=== PATIENT | male | born 1955 | race Caucasian/White ===

== ENCOUNTER 2018-08-22 15:02 | Emergency (ER) | payer MEDICAID ==
[~2018-08-22] VITALS: Ht 180.3 cm; Wt 104.0 kg
[~2018-08-22 15:02] MED LIST: ASPI-845 PO; ATEN25TA7 PO; HYDR-4353 PO; PANT20TA2 PO
[2018-08-22 15:43] LABS: BASOPHILS % (AUTO) 0.8 % (0-1); EOSINOPHILS # (AUTO) 0.2 X10'3 (0-0.9); EOSINOPHILS % (AUTO) 2.9 % (0-6); HEMATOCRIT 45.3 % (42.0-52.0); HEMOGLOBIN 15.5 g/dl (14.0-17.9); LYMPHOCYTES # (AUTO) 1.7 X10'3 (1.1-4.8); LYMPHOCYTES % (AUTO) 26.9 % (21-51); MEAN CORPUSCULAR HEMOGLOBIN 30.3 PG (27.0-31.0); MEAN CORPUSCULAR HGB CONC 34.3 % (33.0-36.5); MEAN CORPUSCULAR VOLUME 88.3 FL (78-98); MONOCYTES # (AUTO) 0.6 X10'3 (0-0.9); MONOCYTES % (AUTO) 10.1 % (2-12); NEUTROPHILS # (AUTO) 3.6 X10'3 (1.8-7.7); NEUTROPHILS % (AUTO) 59.3 % (42-75); PLATELET COUNT 214 X10'3 (140-440); RED BLOOD COUNT 5.13 X10'6 (4.70-6.10); RED CELL DISTRIBUTION WIDTH 12.5 % (11.5-14.5); WHITE BLOOD COUNT 6.1 X10'3 (4.5-11.0)
[2018-08-22] MEDS ORDERED: ondansetron/PF 4mg/2ml inj IV ONE (15:50)
[2018-08-22] MEDS ORDERED: morphine 4 MG/ML inj SYRINge IV ONE (15:50)
[2018-08-22 15:56] LABS: ALANINE AMINOTRANSFERASE 54 U/L (12-78); ALBUMIN 3.1 G/DL (3.4-5.0); ALBUMIN/GLOBULIN RATIO 0.9 (1.1-1.5); ALKALINE PHOSPHATASE 116 IU/L (46-116); ANION GAP 10 (8-16); BILIRUBIN,TOTAL 1.1 MG/DL (0.1-1.0); BLOOD UREA NITROGEN 19 MG/DL (7-18); BUN/CREATININE RATIO 15.2 (5.4-32.0); CALCIUM 9.7 MG/DL (8.5-10.1); CHLORIDE 105 MMOL/L (99-107); CREATININE 1.25 MG/DL (0.60-1.10); GLUCOSE 142 MG/DL (70-104); SODIUM 139 MMOL/L (135-145); TOTAL CARBON DIOXIDE 24.1 MMOL/L (24-32); TOTAL PROTEIN 6.6 G/DL (6.4-8.2); eGFR 58 ML/MIN
[2018-08-22 15:58] LABS: ASPARTATE AMINO TRANSFERASE 51 U/L (10-37); POTASSIUM 4.6 MMOL/L (3.5-5.1)
[2018-08-22 16:05] VITALS: BP 153/99
[2018-08-22 17:25] LABS: CLARITY,URINE CLOUDY (Clear); GLUCOSE, URINE NEGATIVE (Neg); KETONES,URINE TRACE mg/dl (Neg); LEUKOCYTE ESTERASE ,URINE NEGATIVE (Neg); NITRITES, URINE NEGATIVE (Neg); OCCULT BLOOD,URINE LARGE (Neg); PH,URINE 6.5 (4.8-8.0); PROTEIN,URINE 30 mg/dl (Neg); UA COLLECTION TYPE CLN CATCH MIDSTREAM
[2018-08-22 17:26] LABS: COLOR,URINE AMBER (Yellow)
[2018-08-22 17:32] LABS: MUCUS STRANDS MANY /LPF (Neg); SQUAMOUS EPITHELIAL CELL,UR FEW /LPF (FEW)
[2018-08-22 17:33] LABS: CAL OXALATE CRYSTALS FEW /HPF (NEGATIVE); HYALINE CASTS 0-3 /LPF (NEGATIVE)
[2018-08-22 17:35] LABS: BACTERIA,URINE NONE SEEN /HPF (Neg); RBC,URINE 20-50 /HPF (0-2)
[2018-08-22] MEDS ORDERED: CIPR-230 PO (18:05)
[2018-08-22] MEDS ORDERED: ketorolac tromethamine 15mg/ml inj. IV ONE (18:05)
[2018-08-22] MEDS ORDERED: ciprofloxacin 250mg tablet PO ONE (18:05)
== END 2018-08-22 18:21 | disposition home or self-care (01) ==
LOC: ER 15:02
DX: N39.0 Urinary tract infection, site not specified (principal); N48.89 Other specified disorders of penis; G89.29 Other chronic pain; J44.9 Chronic obstructive pulmonary disease, unspecified; I10 Essential (primary) hypertension; Z87.442 Personal history of urinary calculi; Z88.8 Allergy status to other drugs, medicaments and biological substances; Z79.82 Long term (current) use of aspirin; Z79.899 Other long term (current) drug therapy
CPT/HCPCS: 36415; 74018; 80053; 81001; 85025; 87088; 96374; 96375; 99285; J2270; J2405

== ENCOUNTER 2019-04-23 16:37 | Emergency (ER) | payer MEDICARE, MEDICAID ==
[~2019-04-23] VITALS: Ht 180.3 cm; Wt 113.6 kg
[2019-04-23 16:38] VITALS: BP 113/66
== END 2019-04-23 16:51 ==
LOC: ER 16:37
DX: Z04.1 Encounter for examination and observation following transport accident (principal); E66.9 Obesity, unspecified; I10 Essential (primary) hypertension; J44.9 Chronic obstructive pulmonary disease, unspecified; G89.29 Other chronic pain; Z98.890 Other specified postprocedural states; Z88.8 Allergy status to other drugs, medicaments and biological substances; Z79.82 Long term (current) use of aspirin; Z79.899 Other long term (current) drug therapy; V49.88XA Car occupant (driver) (passenger) injured in other specified transport accidents, initial encounter; Y93.89 Activity, other specified; Y92.413 State road as the place of occurrence of the external cause; Y99.9 Unspecified external cause status
CPT/HCPCS: 99283

== ENCOUNTER 2024-12-11 11:32 | Inpatient (IN) | payer MEDICARE, MEDICAID, OTHER ==
[~2024-12-11] VITALS: Ht 193 cm; Wt 120.0 kg
[2024-12-11 12:33] LABS: BASOPHILS # (AUTO) 0.1 X10'3 (0-0.2); BASOPHILS % (AUTO) 0.3 % (0-1); EOSINOPHILS % (AUTO) 0.1 % (0-6); HEMATOCRIT 54.6 % (42.0-52.0); HEMOGLOBIN 17.9 g/dl (14.0-17.9); LYMPHOCYTES # (AUTO) 2.4 X10'3 (1.1-4.8); LYMPHOCYTES % (AUTO) 11.6 % (21-51); MEAN CORPUSCULAR HEMOGLOBIN 27.6 PG (27.0-31.0); MEAN CORPUSCULAR HGB CONC 32.7 g/dL (33.0-36.5); MEAN CORPUSCULAR VOLUME 84.5 FL (78-98); MEAN PLATELET VOLUME 8.6 FL (7.4-10.4); MONOCYTES # (AUTO) 2.1 X10'3 (0-0.9); MONOCYTES % (AUTO) 10.4 % (2-12); NEUTROPHILS % (AUTO) 77.6 % (42-75); PLATELET COUNT 387 X10'3 (140-440); RED BLOOD COUNT 6.47 X10'6 (4.70-6.10); RED CELL DISTRIBUTION WIDTH 15.6 % (11.5-14.5); WHITE BLOOD COUNT 20.6 X10'3 (4.5-11.0)
[2024-12-11 12:41] LABS: BILIRUBIN,URINE SMALL (Neg); CLARITY,URINE CLEAR (Clear); GLUCOSE, URINE NEGATIVE (Neg); KETONES,URINE NEGATIVE (Neg); LEUKOCYTE ESTERASE ,URINE NEGATIVE (Neg); NITRITES, URINE NEGATIVE (Neg); OCCULT BLOOD,URINE TRACE-INTACT (Neg); PH,URINE 5.5 (4.8-8.0); PROTEIN,URINE TRACE mg/dl (Neg)
[2024-12-11 12:42] LABS: UA COLLECTION TYPE FOLEY CATH
[2024-12-11 12:43] LABS: COLOR,URINE AMBER (Yellow)
[2024-12-11 12:43] LABS: ALANINE AMINOTRANSFERASE 96 U/L (12-78); ALBUMIN 3.2 G/DL (3.4-5.0); ALBUMIN/GLOBULIN RATIO 0.6 (1.1-1.5); ALKALINE PHOSPHATASE 176 IU/L (46-116); ANION GAP 8 (8-16); BILIRUBIN,TOTAL 3.5 MG/DL (0.1-1.0); BLOOD UREA NITROGEN 77 MG/DL (7-18); BUN/CREATININE RATIO 56.2 (10.0-20.0); CALCIUM 11.1 MG/DL (8.5-10.1); CHLORIDE 108 MMOL/L (99-107); CREATININE 1.37 MG/DL (0.60-1.10); GLUCOSE 252 MG/DL (70-104); SODIUM 143 MMOL/L (135-145); TOTAL CARBON DIOXIDE 26.9 MMOL/L (24-32); TOTAL PROTEIN 8.2 G/DL (6.4-8.2); eCRCL 58 ML/MIN; eGFR 51 ML/MIN
[2024-12-11 12:47] LABS: RBC,URINE 0-2 /HPF (0-2); WBC,URINE 0-4 /HPF (0-4)
[2024-12-11 12:48] LABS: BACTERIA,URINE NONE SEEN /HPF (Neg); HYALINE CASTS 0-3 /LPF (NEGATIVE); MUCUS STRANDS NONE SEEN /LPF (Neg); SQUAMOUS EPITHELIAL CELL,UR FEW /LPF (FEW)
[2024-12-11 12:50] LABS: PRO BRAIN NATRIURETIC PEPTIDE 159 PG/ML (0-125)
[2024-12-11] MEDS ORDERED: iohexol 350MG/ML 100ml bottle IV ONE (13:09)
[2024-12-11 13:37] LABS: ASPARTATE AMINO TRANSFERASE 180 U/L (10-37); POTASSIUM 5.4 MMOL/L (3.5-5.1)
[2024-12-11 14:13] LABS: CREATINE KINASE 3189 U/L (39-308)
[2024-12-11] MEDS: ringers solution, lacted 1,000 ML IV ONE (15:32)
[2024-12-11] MEDS: normal saline 1000ml 1,000 ML IV ONE ×2 (16:18→17:25)
[2024-12-11] MEDS ORDERED: acetaminophen 325mg tablet PO PRN (16:55)
[2024-12-11] MEDS ORDERED: mag hydrox/Alum hydrox/simeth 30ml oral suspension PO PRN (16:55)
[2024-12-11] MEDS ORDERED: potassium Cl 40MEQ/1/2NS 520ml 520 ML IV PRN (16:55)
[2024-12-11] MEDS ORDERED: magnesium hydroxide 30ml (MOM) UD suspension PO PRN (16:55)
[2024-12-11] MEDS ORDERED: magnesium sulf-water 4G/100mL 100 ML IV PRN (16:55)
[2024-12-11] MEDS ORDERED: magnesium sulf-water 2g/50mL 50 ML IV PRN (16:55)
[2024-12-11] MEDS ORDERED: potassium Cl 20 mEq SR tablet PO PRN ×2 (16:55)
[2024-12-11] MEDS: normal saline 1000ml 1,000 ML IV SCH (16:55)
[2024-12-11] MEDS ORDERED: ondansetron/PF 4mg/2ml inj IV PRN (16:55)
[2024-12-11] MEDS ORDERED: magnesium Cl slow-release 64mg tablet PO PRN (16:55)
[2024-12-11] MEDS: piperacillin/tazo 4.5gm/100ml 100 ML IV ONE (17:01)
[2024-12-11] MEDS: ipratropium/albuterol 3ml nebule NEB SCH (17:34)
[2024-12-11 17:35] VITALS: PULSE 100; RESP 20; O2SAT 96
[2024-12-11] MEDS ORDERED: NO HOME MEDS (17:56)
[2024-12-11 18:00] VITALS: BP 126/70; PULSE 90; RESP 16; TEMP 97.8; O2SAT 94
[2024-12-11 20:00] VITALS: PULSE 88; RESP 15; O2SAT 94
[2024-12-11] MEDS: docusate sod 100mg capsule PO SCH (20:00)
[2024-12-11] MEDS: K and/or MAG REPLACEMENT MC SCH (20:00)
[2024-12-11 22:00] VITALS: BP 123/80; PULSE 88; RESP 20; TEMP 97.6; O2SAT 94
[2024-12-11] MEDS: heparin, porcine 5000 units/ml vial SQ SCH (22:27)
[2024-12-11] MEDS: morphine 4 MG/ML inj SYRINge IV PRN (22:38)
[2024-12-12] VITALS (15 sets, daily range): BP systolic 85–145; BP diastolic 47–93; PULSE 85–101; RESP 17–25; TEMP 97.3–98.2; O2SAT 92–98
[2024-12-12] MEDS: piperacillin/tazo 3.375gm/50ml 50 ML IV SCH (00:21)
[2024-12-12] MEDS: morphine 2 MG/ML inj. syringe IV ONE (01:27)
[2024-12-12 07:29] LABS: BASOPHILS % (AUTO) 0.3 % (0-1); EOSINOPHILS % (AUTO) 0.2 % (0-6); HEMATOCRIT 47.6 % (42.0-52.0); HEMOGLOBIN 15.4 g/dl (14.0-17.9); LYMPHOCYTES # (AUTO) 2.7 X10'3 (1.1-4.8); LYMPHOCYTES % (AUTO) 17.4 % (21-51); MEAN CORPUSCULAR HEMOGLOBIN 27.4 PG (27.0-31.0); MEAN CORPUSCULAR HGB CONC 32.4 g/dL (33.0-36.5); MEAN CORPUSCULAR VOLUME 84.5 FL (78-98); MEAN PLATELET VOLUME 8.4 FL (7.4-10.4); MONOCYTES # (AUTO) 1.8 X10'3 (0-0.9); MONOCYTES % (AUTO) 11.4 % (2-12); NEUTROPHILS # (AUTO) 10.9 X10'3 (1.8-7.7); NEUTROPHILS % (AUTO) 70.7 % (42-75); PLATELET COUNT 320 X10'3 (140-440); RED BLOOD COUNT 5.63 X10'6 (4.70-6.10); RED CELL DISTRIBUTION WIDTH 15.6 % (11.5-14.5); WHITE BLOOD COUNT 15.4 X10'3 (4.5-11.0)
[2024-12-12 07:44] LABS: ALANINE AMINOTRANSFERASE 78 U/L (12-78); ALBUMIN 2.5 G/DL (3.4-5.0); ALBUMIN/GLOBULIN RATIO 0.7 (1.1-1.5); ALKALINE PHOSPHATASE 119 IU/L (46-116); ANION GAP 9 (8-16); ASPARTATE AMINO TRANSFERASE 182 U/L (10-37); BILIRUBIN,TOTAL 3.4 MG/DL (0.1-1.0); BLOOD UREA NITROGEN 78 MG/DL (7-18); CALCIUM 9.8 MG/DL (8.5-10.1); CHLORIDE 113 MMOL/L (99-107); CHOL/HDL RATIO 3.8 (0.00-4.99); CHOLESTEROL 75 MG/DL (0-200); CREATININE 1.66 MG/DL (0.60-1.10); GLUCOSE 145 MG/DL (70-104); HDL CHOLESTEROL 20 MG/DL (35-60); LDL CHOLESTEROL 37 MG/DL (50-100); POTASSIUM 5.1 MMOL/L (3.5-5.1); SODIUM 145 MMOL/L (135-145); TOTAL CARBON DIOXIDE 23.2 MMOL/L (24-32); TOTAL PROTEIN 6.1 G/DL (6.4-8.2); TRIGLYCERIDES 138 MG/DL (20-135); eCRCL 51 ML/MIN; eGFR 41 ML/MIN
[2024-12-12] MEDS: nystatin 15 GM powder TP SCH (08:26)
[2024-12-12] MEDS ORDERED: levetiracetam 250mg tablet PO SCH (08:45)
[2024-12-12] MEDS: normal saline 500ml IV soln 500 ML IV ONE (08:55)
[2024-12-12 09:36] LABS: CREATINE KINASE 2021 U/L (39-308)
[2024-12-12 10:40] LABS: URINE AMPHETAMINE SCREEN POSITIVE (Neg); URINE BARBITUATE SCREEN NEGATIVE (Neg); URINE BENZODIAZEPINES SCREEN NEGATIVE (Neg); URINE CANNABINOID SCREEN NEGATIVE (Neg); URINE COCAINE SCREEN NEGATIVE (Neg); URINE METHADONE SCREEN NEGATIVE (Neg); URINE OPIATE SCREEN POSITIVE (Neg); URINE PHENCYCLIDINE SCREEN NEGATIVE (Neg)
[2024-12-12] MEDS ORDERED: levetiracetam inj 500 MG in normal saline 100ml IV soln 100 ML IV SCH (11:20)
[2024-12-12 12:32] LABS: PHOSPHORUS 4.3 MG/DL (2.3-4.5)
[2024-12-12] MEDS: Levetiracetam-NACL 500mg/100ml 100 ML IV SCH (12:53)
[2024-12-12 12:59] LABS: URIC ACID 13.1 MG/DL (3.5-7.2)
[2024-12-13] VITALS (16 sets, daily range): BP systolic 97–148; BP diastolic 49–76; PULSE 83–98; RESP 18–26; TEMP 97–98.1; O2SAT 91–96
[2024-12-13] MEDS ORDERED: piperacillin/tazo 3.375gm/50ml 50 ML IV SCH (04:15)
[2024-12-13] MEDS: piperacillin/tazo 3.375gm/50ml 50 ML IV SCH (04:23)
[2024-12-13 11:01] LABS: BASOPHILS # (AUTO) 0.1 X10'3 (0-0.2); BASOPHILS % (AUTO) 0.6 % (0-1); EOSINOPHILS % (AUTO) 0.1 % (0-6); HEMATOCRIT 42.6 % (42.0-52.0); HEMOGLOBIN 13.9 g/dl (14.0-17.9); LYMPHOCYTES # (AUTO) 2.3 X10'3 (1.1-4.8); LYMPHOCYTES % (AUTO) 19.7 % (21-51); MEAN CORPUSCULAR HEMOGLOBIN 27.7 PG (27.0-31.0); MEAN CORPUSCULAR HGB CONC 32.7 g/dL (33.0-36.5); MEAN CORPUSCULAR VOLUME 84.8 FL (78-98); MEAN PLATELET VOLUME 8.1 FL (7.4-10.4); MONOCYTES # (AUTO) 1.1 X10'3 (0-0.9); MONOCYTES % (AUTO) 9.7 % (2-12); NEUTROPHILS % (AUTO) 69.9 % (42-75); PLATELET COUNT 288 X10'3 (140-440); RED BLOOD COUNT 5.03 X10'6 (4.70-6.10); WHITE BLOOD COUNT 11.4 X10'3 (4.5-11.0)
[2024-12-13 11:28] LABS: ALANINE AMINOTRANSFERASE 73 U/L (12-78); ALBUMIN 2.3 G/DL (3.4-5.0); ALKALINE PHOSPHATASE 98 IU/L (46-116); ANION GAP 7 (8-16); ASPARTATE AMINO TRANSFERASE 139 U/L (10-37); BILIRUBIN,TOTAL 4.4 MG/DL (0.1-1.0); BLOOD UREA NITROGEN 84 MG/DL (7-18); BUN/CREATININE RATIO 50.3 (10.0-20.0); CALCIUM 9.8 MG/DL (8.5-10.1); CHLORIDE 122 MMOL/L (99-107); CREATINE KINASE 764 U/L (39-308); CREATININE 1.67 MG/DL (0.60-1.10); GLUCOSE 118 MG/DL (70-104); SODIUM 152 MMOL/L (135-145); TOTAL CARBON DIOXIDE 23.3 MMOL/L (24-32); URIC ACID 12.3 MG/DL (3.5-7.2); eCRCL 51 ML/MIN; eGFR 41 ML/MIN
[2024-12-13 12:01] LABS: ALBUMIN/GLOBULIN RATIO 0.7 (1.1-1.5); TOTAL PROTEIN 5.8 G/DL (6.4-8.2)
[2024-12-13] MEDS ORDERED: sodium chloride 0.45% 1,000 ML IV SCH (17:30)
[2024-12-13] MEDS: dextrose 5%-water 1,000 ML IV SCH (21:50)
[2024-12-13] MEDS: LORazepam 2 mg/ml vial IV ONE (22:50)
[2024-12-14] VITALS (15 sets, daily range): BP systolic 114–135; BP diastolic 60–95; PULSE 80–93; RESP 16–21; TEMP 97.3–99; O2SAT 85–93
[2024-12-14] MEDS: morphine 2 MG/ML inj. syringe IV PRN (01:10)
[2024-12-14] MEDS: acetylcysteine 200 MG/ml 4ml vial INH ONE (01:53)
[2024-12-14 08:01] LABS: BASOPHILS # (AUTO) 0.1 X10'3 (0-0.2); BASOPHILS % (AUTO) 0.5 % (0-1); EOSINOPHILS % (AUTO) 0.3 % (0-6); HEMATOCRIT 44.8 % (42.0-52.0); HEMOGLOBIN 14.4 g/dl (14.0-17.9); LYMPHOCYTES # (AUTO) 2.3 X10'3 (1.1-4.8); LYMPHOCYTES % (AUTO) 21.3 % (21-51); MEAN CORPUSCULAR HEMOGLOBIN 27.5 PG (27.0-31.0); MEAN CORPUSCULAR HGB CONC 32.2 g/dL (33.0-36.5); MEAN CORPUSCULAR VOLUME 85.6 FL (78-98); MEAN PLATELET VOLUME 7.7 FL (7.4-10.4); MONOCYTES # (AUTO) 1.1 X10'3 (0-0.9); MONOCYTES % (AUTO) 9.7 % (2-12); NEUTROPHILS # (AUTO) 7.5 X10'3 (1.8-7.7); NEUTROPHILS % (AUTO) 68.2 % (42-75); PLATELET COUNT 304 X10'3 (140-440); RED BLOOD COUNT 5.24 X10'6 (4.70-6.10)
[2024-12-14] MEDS: piperacillin/tazo 3.375gm/50ml 50 ML IV SCH (08:25)
[2024-12-14 08:40] LABS: ALANINE AMINOTRANSFERASE 86 U/L (12-78); ALBUMIN 2.3 G/DL (3.4-5.0); ALBUMIN/GLOBULIN RATIO 0.6 (1.1-1.5); ALKALINE PHOSPHATASE 107 IU/L (46-116); ANION GAP 10 (8-16); ASPARTATE AMINO TRANSFERASE 154 U/L (10-37); BILIRUBIN,TOTAL 4.1 MG/DL (0.1-1.0); BLOOD UREA NITROGEN 67 MG/DL (7-18); BUN/CREATININE RATIO 44.4 (10.0-20.0); CALCIUM 10.3 MG/DL (8.5-10.1); CHLORIDE 123 MMOL/L (99-107); CREATINE KINASE 589 U/L (39-308); CREATININE 1.51 MG/DL (0.60-1.10); GLUCOSE 159 MG/DL (70-104); PHOSPHORUS 2.7 MG/DL (2.3-4.5); POTASSIUM 4.8 MMOL/L (3.5-5.1); PRO BRAIN NATRIURETIC PEPTIDE 204 PG/ML (0-125); SODIUM 154 MMOL/L (135-145); TOTAL CARBON DIOXIDE 21.3 MMOL/L (24-32); TOTAL PROTEIN 6.3 G/DL (6.4-8.2); URIC ACID 11.6 MG/DL (3.5-7.2); eCRCL 56 ML/MIN; eGFR 46 ML/MIN
[2024-12-14] MEDS: furosemide 20 MG/2 ML vial IV SCH (09:59)
[2024-12-14] MEDS ORDERED: acetaminophen 325mg/10.15ml oral unit dose solution NG PRN (13:13)
[2024-12-14] MEDS ORDERED: mag hydrox/Alum hydrox/simeth 30ml oral suspension NG PRN (13:15)
[2024-12-14] MEDS ORDERED: POTASSIUM CHLORIDE 20 MEQ/15 ML oral solution NG PRN ×2 (13:19→13:20)
[2024-12-14 14:13] LABS: PREALBUMIN 13.3 MG/DL (19-36)
[2024-12-14] MEDS: docusate sodium 100mg/10ml UD cup NG SCH (21:13)
[2024-12-14] MEDS: ARGININE/GLUTAMINE/CALCIUM BMB (JUVEN 19.3GM PKT) 1 EACH POWD.PACK NG SCH (21:14)
[2024-12-15] VITALS (20 sets, daily range): BP systolic 114–139; BP diastolic 63–71; PULSE 79–101; RESP 17–24; TEMP 97.6–100.4; O2SAT 91–97
[2024-12-15 06:17] LABS: BASOPHILS # (AUTO) 0.1 X10'3 (0-0.2); BASOPHILS % (AUTO) 0.9 % (0-1); EOSINOPHILS # (AUTO) 0.2 X10'3 (0-0.9); HEMATOCRIT 43.1 % (42.0-52.0); HEMOGLOBIN 14.1 g/dl (14.0-17.9); LYMPHOCYTES # (AUTO) 2.3 X10'3 (1.1-4.8); LYMPHOCYTES % (AUTO) 20.4 % (21-51); MEAN CORPUSCULAR HEMOGLOBIN 27.8 PG (27.0-31.0); MEAN CORPUSCULAR HGB CONC 32.8 g/dL (33.0-36.5); MEAN CORPUSCULAR VOLUME 84.9 FL (78-98); MONOCYTES # (AUTO) 1.3 X10'3 (0-0.9); MONOCYTES % (AUTO) 11.6 % (2-12); NEUTROPHILS # (AUTO) 7.4 X10'3 (1.8-7.7); NEUTROPHILS % (AUTO) 65.1 % (42-75); PLATELET COUNT 296 X10'3 (140-440); RED BLOOD COUNT 5.08 X10'6 (4.70-6.10); RED CELL DISTRIBUTION WIDTH 15.7 % (11.5-14.5); WHITE BLOOD COUNT 11.3 X10'3 (4.5-11.0)
[2024-12-15 06:36] LABS: ALANINE AMINOTRANSFERASE 89 U/L (12-78); ALBUMIN 2.2 G/DL (3.4-5.0); ALBUMIN/GLOBULIN RATIO 0.6 (1.1-1.5); ALKALINE PHOSPHATASE 102 IU/L (46-116); ANION GAP 4 (8-16); ASPARTATE AMINO TRANSFERASE 114 U/L (10-37); BILIRUBIN,TOTAL 2.8 MG/DL (0.1-1.0); BLOOD UREA NITROGEN 62 MG/DL (7-18); BUN/CREATININE RATIO 42.5 (10.0-20.0); CALCIUM 10.5 MG/DL (8.5-10.1); CHLORIDE 123 MMOL/L (99-107); CREATININE 1.46 MG/DL (0.60-1.10); GLUCOSE 183 MG/DL (70-104); POTASSIUM 4.5 MMOL/L (3.5-5.1); SODIUM 154 MMOL/L (135-145); TOTAL CARBON DIOXIDE 26.8 MMOL/L (24-32); TOTAL PROTEIN 5.9 G/DL (6.4-8.2); eCRCL 58 ML/MIN; eGFR 48 ML/MIN
[2024-12-15 07:40] LABS: URIC ACID 10.3 MG/DL (3.5-7.2)
[2024-12-15] MEDS ORDERED: haloperidol lactate 5mg/ml inj IM ONE (14:10)
[2024-12-15] MEDS: LORazepam 2 mg/ml vial IV ONE (15:50)
[2024-12-15] MEDS: PERFLUTREN PROTEIN-A MICROSPHR (Optison) 0.22 MG/ML 3ML VIAL IV ONE (18:00)
[2024-12-15] MEDS: atorvastatin 20mg tablet NG SCH (19:30)
[2024-12-15] MEDS: clopidogrel 75mg tablet NG SCH (19:30)
[2024-12-15] MEDS: aspirin 300mg supp.rect RC ONE (20:00)
[2024-12-16] VITALS (17 sets, daily range): BP systolic 120–129; BP diastolic 65–77; PULSE 63–91; RESP 17–19; TEMP 97.7–99.1; O2SAT 4–97
[2024-12-16] MEDS: aspirin 81mg tab.chew NG SCH (08:00)
[2024-12-16 11:42] LABS: BASOPHILS % (AUTO) 0.2 % (0-1); EOSINOPHILS # (AUTO) 0.6 X10'3 (0-0.9); EOSINOPHILS % (AUTO) 5.1 % (0-6); HEMATOCRIT 46.8 % (42.0-52.0); HEMOGLOBIN 14.8 g/dl (14.0-17.9); LYMPHOCYTES # (AUTO) 2.8 X10'3 (1.1-4.8); LYMPHOCYTES % (AUTO) 25.2 % (21-51); MEAN CORPUSCULAR HGB CONC 31.6 g/dL (33.0-36.5); MEAN CORPUSCULAR VOLUME 85.6 FL (78-98); MEAN PLATELET VOLUME 8.2 FL (7.4-10.4); MONOCYTES # (AUTO) 1.1 X10'3 (0-0.9); MONOCYTES % (AUTO) 10.4 % (2-12); NEUTROPHILS # (AUTO) 6.5 X10'3 (1.8-7.7); NEUTROPHILS % (AUTO) 59.1 % (42-75); PLATELET COUNT 291 X10'3 (140-440); RED BLOOD COUNT 5.47 X10'6 (4.70-6.10); RED CELL DISTRIBUTION WIDTH 15.8 % (11.5-14.5)
[2024-12-16 11:56] LABS: ALANINE AMINOTRANSFERASE 82 U/L (12-78); ALBUMIN 2.3 G/DL (3.4-5.0); ALBUMIN/GLOBULIN RATIO 0.6 (1.1-1.5); ALKALINE PHOSPHATASE 102 IU/L (46-116); ANION GAP 7 (8-16); ASPARTATE AMINO TRANSFERASE 79 U/L (10-37); BILIRUBIN,TOTAL 2.2 MG/DL (0.1-1.0); BLOOD UREA NITROGEN 45 MG/DL (7-18); BUN/CREATININE RATIO 37.5 (10.0-20.0); CALCIUM 10.4 MG/DL (8.5-10.1); CHLORIDE 121 MMOL/L (99-107); GLUCOSE 140 MG/DL (70-104); PHOSPHORUS 2.1 MG/DL (2.3-4.5); POTASSIUM 4.3 MMOL/L (3.5-5.1); TOTAL CARBON DIOXIDE 27.4 MMOL/L (24-32); TOTAL PROTEIN 6.1 G/DL (6.4-8.2); URIC ACID 8.2 MG/DL (3.5-7.2); eCRCL 70 ML/MIN; eGFR 60 ML/MIN
[2024-12-16 12:00] LABS: SODIUM 155 MMOL/L (135-145)
[2024-12-17] VITALS (9 sets, daily range): BP systolic 119–190; BP diastolic 67–73; PULSE 63–91; RESP 14–19; TEMP 97.8–98.7; O2SAT 94–100
[2024-12-17 10:39] LABS: BASOPHILS % (AUTO) 0.5 % (0-1); EOSINOPHILS # (AUTO) 0.7 X10'3 (0-0.9); EOSINOPHILS % (AUTO) 7.5 % (0-6); HEMATOCRIT 44.3 % (42.0-52.0); HEMOGLOBIN 14.5 g/dl (14.0-17.9); LYMPHOCYTES # (AUTO) 2.3 X10'3 (1.1-4.8); LYMPHOCYTES % (AUTO) 24.5 % (21-51); MEAN CORPUSCULAR HEMOGLOBIN 27.8 PG (27.0-31.0); MEAN CORPUSCULAR HGB CONC 32.8 g/dL (33.0-36.5); MEAN CORPUSCULAR VOLUME 84.8 FL (78-98); MEAN PLATELET VOLUME 8.3 FL (7.4-10.4); MONOCYTES # (AUTO) 0.9 X10'3 (0-0.9); MONOCYTES % (AUTO) 9.5 % (2-12); NEUTROPHILS # (AUTO) 5.5 X10'3 (1.8-7.7); PLATELET COUNT 273 X10'3 (140-440); RED BLOOD COUNT 5.22 X10'6 (4.70-6.10); RED CELL DISTRIBUTION WIDTH 15.5 % (11.5-14.5); WHITE BLOOD COUNT 9.4 X10'3 (4.5-11.0)
[2024-12-17 11:16] LABS: ALANINE AMINOTRANSFERASE 86 U/L (12-78); ALBUMIN 2.3 G/DL (3.4-5.0); ALBUMIN/GLOBULIN RATIO 0.6 (1.1-1.5); ALKALINE PHOSPHATASE 105 IU/L (46-116); ANION GAP 4 (8-16); ASPARTATE AMINO TRANSFERASE 84 U/L (10-37); BLOOD UREA NITROGEN 44 MG/DL (7-18); CALCIUM 10.6 MG/DL (8.5-10.1); CHLORIDE 118 MMOL/L (99-107); GLUCOSE 140 MG/DL (70-104); POTASSIUM 4.2 MMOL/L (3.5-5.1); SODIUM 151 MMOL/L (135-145); TOTAL CARBON DIOXIDE 28.8 MMOL/L (24-32); eCRCL 77 ML/MIN; eGFR 66 ML/MIN
[2024-12-17] MEDS ORDERED: Dextrose 10%-water IV solution 1,000 ML IV PRN (13:30)
[2024-12-17 13:57] LABS: PHOSPHORUS 2.5 MG/DL (2.3-4.5); PREALBUMIN 12.4 MG/DL (19-36); TRIGLYCERIDES 132 MG/DL (20-135)
[2024-12-17] MEDS: fat emulsion 20% inj. 100 ML IV SCH (21:33)
[2024-12-17] MEDS: MVI, adult No.4 with vit. K 10 ML in dextrose 5% water 500ml 500 ML IV SCH (21:58)
[2024-12-17] MEDS: SELENIUM IV SCH (21:59)
[2024-12-17] MEDS: [UNRECOGNIZED DRUG - OTHER] IV SCH (21:59)
[2024-12-17] MEDS: CHROMIC CHLORIDE IV SCH (21:59)
[2024-12-17] MEDS: ZINC IV SCH (21:59)
[2024-12-17] MEDS: MANGANESE IV SCH (21:59)
[2024-12-17] MEDS: COPPER IV SCH (21:59)
[2024-12-18] VITALS (8 sets, daily range): BP systolic 116–144; BP diastolic 53–87; PULSE 62–71; RESP 14–24; TEMP 96.6–97.8; O2SAT 93–97
[2024-12-18] MEDS ORDERED: simethicone 40mg/0.6ml oral drops 30ml ONE (12:12)
[2024-12-18] MEDS ORDERED: epiNEPHrine 0.1mg/ml 10ml syringe ONE (12:42)
[2024-12-18] MEDS ORDERED: propofol inj 20 ML IV ONE (12:58)
[2024-12-18] MEDS: morphine 4 MG/ML inj SYRINge IV PRN (16:43)
[2024-12-18] MEDS: dextrose 5%-water 1,000 ML IV SCH (16:47)
[2024-12-18] MEDS: pantoprazole 40MG/NS 100ML BAG 100 ML IV SCH (21:03)
[2024-12-19] MEDS: CHROMIC CHLORIDE IV SCH (03:28)
[2024-12-19] MEDS: COPPER IV SCH (03:28)
[2024-12-19] MEDS: [UNRECOGNIZED DRUG - OTHER] IV SCH (03:28)
[2024-12-19] MEDS: MANGANESE IV SCH (03:28)
[2024-12-19] MEDS: ZINC IV SCH (03:28)
[2024-12-19] MEDS: SELENIUM IV SCH (03:28)
[2024-12-19 06:00] VITALS: BP 129/61; PULSE 67; RESP 16; TEMP 97.9; O2SAT 100
[2024-12-19 06:29] LABS: ALANINE AMINOTRANSFERASE 71 U/L (12-78); ALBUMIN/GLOBULIN RATIO 0.5 (1.1-1.5); ALKALINE PHOSPHATASE 97 IU/L (46-116); ANION GAP 6 (8-16); ASPARTATE AMINO TRANSFERASE 65 U/L (10-37); BILIRUBIN,TOTAL 1.5 MG/DL (0.1-1.0); BLOOD UREA NITROGEN 39 MG/DL (7-18); BUN/CREATININE RATIO 42.4 (10.0-20.0); CALCIUM 9.3 MG/DL (8.5-10.1); CHLORIDE 112 MMOL/L (99-107); CREATININE 0.92 MG/DL (0.60-1.10); GLUCOSE 143 MG/DL (70-104); MAGNESIUM 2.4 MG/DL (1.5-2.4); POTASSIUM 4.1 MMOL/L (3.5-5.1); PREALBUMIN 14.4 MG/DL (19-36); SODIUM 139 MMOL/L (135-145); TOTAL CARBON DIOXIDE 20.8 MMOL/L (24-32); TOTAL PROTEIN 5.7 G/DL (6.4-8.2); TRIGLYCERIDES 185 MG/DL (20-135); eCRCL 92 ML/MIN; eGFR 81 ML/MIN
[2024-12-19 06:41] LABS: BASOPHILS # (AUTO) 0.1 X10'3 (0-0.2); BASOPHILS % (AUTO) 1.1 % (0-1); EOSINOPHILS # (AUTO) 0.6 X10'3 (0-0.9); EOSINOPHILS % (AUTO) 5.4 % (0-6); HEMATOCRIT 42.4 % (42.0-52.0); HEMOGLOBIN 13.6 g/dl (14.0-17.9); LYMPHOCYTES # (AUTO) 2.3 X10'3 (1.1-4.8); LYMPHOCYTES % (AUTO) 20.2 % (21-51); MEAN CORPUSCULAR VOLUME 87.6 FL (78-98); MEAN PLATELET VOLUME 8.5 FL (7.4-10.4); MONOCYTES % (AUTO) 8.8 % (2-12); NEUTROPHILS # (AUTO) 7.3 X10'3 (1.8-7.7); NEUTROPHILS % (AUTO) 64.5 % (42-75); PLATELET COUNT 227 X10'3 (140-440); RED BLOOD COUNT 4.84 X10'6 (4.70-6.10); RED CELL DISTRIBUTION WIDTH 15.8 % (11.5-14.5); WHITE BLOOD COUNT 11.3 X10'3 (4.5-11.0)
[2024-12-19 10:00] VITALS: BP 134/59; PULSE 64; RESP 16; TEMP 97.2; O2SAT 96
[2024-12-19 11:09] LABS: CREATINE KINASE 52 U/L (39-308)
[2024-12-19] MEDS ORDERED: Neutra Phos packet PO PRN (13:25)
[2024-12-19] MEDS ORDERED: sodium phosphate inj. 30 MMOL in dextrose 5%-water 250 ML IV PRN (13:25)
[2024-12-19] MEDS ORDERED: sodium phosphate inj. 15 MMOL in dextrose 5%-water 250 ML IV PRN (13:25)
[2024-12-19] MEDS ORDERED: Neutra Phos packet NG PRN (13:28)
[2024-12-19 18:00] VITALS: BP 146/74; PULSE 63; RESP 18; TEMP 97.2; O2SAT 96
[2024-12-19 20:00] VITALS: RESP 18; O2SAT 96
[2024-12-19 22:00] VITALS: BP 123/67; PULSE 71; RESP 18; TEMP 97.4; O2SAT 96
[2024-12-20] VITALS (10 sets, daily range): BP systolic 128–146; BP diastolic 57–62; PULSE 62–83; RESP 16–20; TEMP 98–98.1; O2SAT 96–98
[2024-12-20 07:41] LABS: BASOPHILS # (AUTO) 0.1 X10'3 (0-0.2); BASOPHILS % (AUTO) 0.6 % (0-1); EOSINOPHILS # (AUTO) 0.5 X10'3 (0-0.9); EOSINOPHILS % (AUTO) 5.8 % (0-6); HEMATOCRIT 40.4 % (42.0-52.0); HEMOGLOBIN 13.6 g/dl (14.0-17.9); LYMPHOCYTES # (AUTO) 1.8 X10'3 (1.1-4.8); LYMPHOCYTES % (AUTO) 18.8 % (21-51); MEAN CORPUSCULAR HEMOGLOBIN 28.2 PG (27.0-31.0); MEAN CORPUSCULAR HGB CONC 33.6 g/dL (33.0-36.5); MEAN CORPUSCULAR VOLUME 83.9 FL (78-98); MEAN PLATELET VOLUME 8.9 FL (7.4-10.4); MONOCYTES # (AUTO) 0.7 X10'3 (0-0.9); MONOCYTES % (AUTO) 7.5 % (2-12); NEUTROPHILS # (AUTO) 6.3 X10'3 (1.8-7.7); NEUTROPHILS % (AUTO) 67.3 % (42-75); PLATELET COUNT 225 X10'3 (140-440); RED BLOOD COUNT 4.81 X10'6 (4.70-6.10); WHITE BLOOD COUNT 9.4 X10'3 (4.5-11.0)
[2024-12-20] MEDS: pantoprazole 40 MG vial IV SCH (07:52)
[2024-12-20] MEDS: nicotine 21mg patch - 24 hr TD SCH (07:53)
[2024-12-20 08:06] LABS: ALANINE AMINOTRANSFERASE 68 U/L (12-78); ALBUMIN 2.1 G/DL (3.4-5.0); ALBUMIN/GLOBULIN RATIO 0.6 (1.1-1.5); ALKALINE PHOSPHATASE 95 IU/L (46-116); ANION GAP 7 (8-16); ASPARTATE AMINO TRANSFERASE 65 U/L (10-37); BILIRUBIN,TOTAL 1.7 MG/DL (0.1-1.0); BLOOD UREA NITROGEN 29 MG/DL (7-18); BUN/CREATININE RATIO 35.8 (10.0-20.0); CALCIUM 9.4 MG/DL (8.5-10.1); CHLORIDE 109 MMOL/L (99-107); CREATININE 0.81 MG/DL (0.60-1.10); MAGNESIUM 1.8 MG/DL (1.5-2.4); PHOSPHORUS 1.8 MG/DL (2.3-4.5); POTASSIUM 3.7 MMOL/L (3.5-5.1); SODIUM 137 MMOL/L (135-145); TOTAL CARBON DIOXIDE 21.2 MMOL/L (24-32); TOTAL PROTEIN 5.6 G/DL (6.4-8.2); eCRCL 104 ML/MIN; eGFR > 90 ML/MIN
[2024-12-20 09:11] LABS: GLUCOSE 165 MG/DL (70-104)
[2024-12-20 10:09] LABS: TOTAL CELLS COUNTED 100
[2024-12-20 10:11] LABS: PLATELET ESTIMATE NORMAL
[2024-12-21] VITALS (11 sets, daily range): BP systolic 131–140; BP diastolic 63–77; PULSE 68–86; RESP 15–20; TEMP 97.1–98.8; O2SAT 94–99
[2024-12-21 06:55] LABS: BASOPHILS % (AUTO) 0.5 % (0-1); EOSINOPHILS # (AUTO) 0.2 X10'3 (0-0.9); EOSINOPHILS % (AUTO) 2.9 % (0-6); HEMATOCRIT 38.3 % (42.0-52.0); HEMOGLOBIN 12.8 g/dl (14.0-17.9); LYMPHOCYTES # (AUTO) 1.5 X10'3 (1.1-4.8); LYMPHOCYTES % (AUTO) 18.6 % (21-51); MEAN CORPUSCULAR HEMOGLOBIN 27.7 PG (27.0-31.0); MEAN CORPUSCULAR HGB CONC 33.3 g/dL (33.0-36.5); MEAN CORPUSCULAR VOLUME 83.2 FL (78-98); MEAN PLATELET VOLUME 8.7 FL (7.4-10.4); MONOCYTES # (AUTO) 0.7 X10'3 (0-0.9); MONOCYTES % (AUTO) 9.3 % (2-12); NEUTROPHILS # (AUTO) 5.4 X10'3 (1.8-7.7); NEUTROPHILS % (AUTO) 68.7 % (42-75); PLATELET COUNT 220 X10'3 (140-440); RED BLOOD COUNT 4.61 X10'6 (4.70-6.10); RED CELL DISTRIBUTION WIDTH 14.8 % (11.5-14.5); WHITE BLOOD COUNT 7.8 X10'3 (4.5-11.0)
[2024-12-21 07:27] LABS: ALANINE AMINOTRANSFERASE 88 U/L (12-78); ALBUMIN 2.1 G/DL (3.4-5.0); ALBUMIN/GLOBULIN RATIO 0.6 (1.1-1.5); ALKALINE PHOSPHATASE 128 IU/L (46-116); ANION GAP 7 (8-16); ASPARTATE AMINO TRANSFERASE 87 U/L (10-37); BILIRUBIN,TOTAL 1.5 MG/DL (0.1-1.0); BLOOD UREA NITROGEN 26 MG/DL (7-18); BUN/CREATININE RATIO 31.3 (10.0-20.0); CALCIUM 9.6 MG/DL (8.5-10.1); CHLORIDE 111 MMOL/L (99-107); CREATININE 0.83 MG/DL (0.60-1.10); GLUCOSE 184 MG/DL (70-104); POTASSIUM 3.5 MMOL/L (3.5-5.1); PREALBUMIN 14.7 MG/DL (19-36); SODIUM 140 MMOL/L (135-145); TOTAL CARBON DIOXIDE 21.8 MMOL/L (24-32); TOTAL PROTEIN 5.4 G/DL (6.4-8.2); TRIGLYCERIDES 170 MG/DL (20-135); eCRCL 102 ML/MIN; eGFR > 90 ML/MIN
[2024-12-21] MEDS ORDERED: [UNRECOGNIZED DRUG - OTHER] IV SCH (15:00)
[2024-12-21] MEDS ORDERED: ZINC IV SCH (15:00)
[2024-12-21] MEDS ORDERED: CHROMIC CHLORIDE IV SCH (15:00)
[2024-12-21] MEDS ORDERED: MANGANESE IV SCH (15:00)
[2024-12-21] MEDS ORDERED: COPPER IV SCH (15:00)
[2024-12-21] MEDS ORDERED: SELENIUM IV SCH (15:00)
[2024-12-22] VITALS (8 sets, daily range): BP systolic 121–148; BP diastolic 66–79; PULSE 68–94; RESP 13–18; TEMP 97.7–98.9; O2SAT 94–97
[2024-12-22 07:28] LABS: ALANINE AMINOTRANSFERASE 82 U/L (12-78); ALBUMIN 2.1 G/DL (3.4-5.0); ALBUMIN/GLOBULIN RATIO 0.6 (1.1-1.5); ALKALINE PHOSPHATASE 144 IU/L (46-116); ANION GAP 8 (8-16); ASPARTATE AMINO TRANSFERASE 71 U/L (10-37); BASOPHILS # (AUTO) 0.1 X10'3 (0-0.2); BASOPHILS % (AUTO) 0.6 % (0-1); BILIRUBIN,TOTAL 1.4 MG/DL (0.1-1.0); BLOOD UREA NITROGEN 24 MG/DL (7-18); BUN/CREATININE RATIO 27.3 (10.0-20.0); CALCIUM 9.4 MG/DL (8.5-10.1); CHLORIDE 110 MMOL/L (99-107); CREATININE 0.88 MG/DL (0.60-1.10); EOSINOPHILS # (AUTO) 0.4 X10'3 (0-0.9); EOSINOPHILS % (AUTO) 4.2 % (0-6); GLUCOSE 183 MG/DL (70-104); HEMATOCRIT 37.9 % (42.0-52.0); HEMOGLOBIN 12.9 g/dl (14.0-17.9); LYMPHOCYTES % (AUTO) 23.5 % (21-51); MEAN CORPUSCULAR HEMOGLOBIN 28.3 PG (27.0-31.0); MEAN CORPUSCULAR VOLUME 83.2 FL (78-98); MEAN PLATELET VOLUME 8.7 FL (7.4-10.4); MONOCYTES # (AUTO) 0.9 X10'3 (0-0.9); MONOCYTES % (AUTO) 10.8 % (2-12); NEUTROPHILS # (AUTO) 5.2 X10'3 (1.8-7.7); NEUTROPHILS % (AUTO) 60.9 % (42-75); PLATELET COUNT 241 X10'3 (140-440); POTASSIUM 3.9 MMOL/L (3.5-5.1); RED BLOOD COUNT 4.55 X10'6 (4.70-6.10); RED CELL DISTRIBUTION WIDTH 14.9 % (11.5-14.5); SODIUM 138 MMOL/L (135-145); TOTAL PROTEIN 5.7 G/DL (6.4-8.2); WHITE BLOOD COUNT 8.6 X10'3 (4.5-11.0); eCRCL 96 ML/MIN; eGFR 86 ML/MIN
[2024-12-22] MEDS: HYDROcodone/acetaminophen 5mg/325mg tablet PO ONE (07:47)
[2024-12-22] MEDS: magnesium hydroxide 30ml (MOM) UD suspension NG PRN (10:24)
[2024-12-22] MEDS ORDERED: polyethylene glycol 3350 17gm powd pack PO PRN (11:45)
[2024-12-22] MEDS: bisacodyl 10mg suppository rectal RC STA (12:05)
[2024-12-22] MEDS ORDERED: magnesium hydroxide 30ml (MOM) UD suspension PO PRN (15:45)
[2024-12-22] MEDS ORDERED: mag hydrox/Alum hydrox/simeth 30ml oral suspension PO PRN (15:45)
[2024-12-22] MEDS ORDERED: Neutra Phos packet PO PRN (15:46)
[2024-12-22] MEDS: lactose-reduced food (Ensure Enlive) - 237ml bottle PO SCH (17:30)
[2024-12-23] VITALS (8 sets, daily range): BP systolic 115–134; BP diastolic 64–71; PULSE 77–82; RESP 18–20; TEMP 97.7–98.6; O2SAT 95–97
[2024-12-23] MEDS: clopidogrel 75mg tablet PO SCH (08:00)
[2024-12-23] MEDS: acetaminophen 325mg/10.15ml oral unit dose solution PO PRN (09:17)
[2024-12-24] VITALS (7 sets, daily range): BP systolic 128–144; BP diastolic 59–77; PULSE 69–77; RESP 18–22; TEMP 97.8–100; O2SAT 93–98
[2024-12-24] MEDS: dextrose 5%-lactated ringers 1,000 ML IV SCH (11:44)
[2024-12-24 11:59] LABS: BASOPHILS # (AUTO) 0.1 X10'3 (0-0.2); EOSINOPHILS # (AUTO) 0.3 X10'3 (0-0.9); MEAN CORPUSCULAR HGB CONC 33.9 g/dL (33.0-36.5)
[2024-12-24 12:01] LABS: EOSINOPHILS % (AUTO) 2.6 % (0-6); HEMATOCRIT 40.4 % (42.0-52.0); HEMOGLOBIN 13.7 g/dl (14.0-17.9); LYMPHOCYTES # (AUTO) 2.2 X10'3 (1.1-4.8); LYMPHOCYTES % (AUTO) 22.8 % (21-51); MEAN CORPUSCULAR HEMOGLOBIN 28.1 PG (27.0-31.0); MEAN CORPUSCULAR VOLUME 82.7 FL (78-98); MEAN PLATELET VOLUME 8.8 FL (7.4-10.4); MONOCYTES # (AUTO) 0.9 X10'3 (0-0.9); MONOCYTES % (AUTO) 8.9 % (2-12); NEUTROPHILS # (AUTO) 6.4 X10'3 (1.8-7.7); NEUTROPHILS % (AUTO) 64.7 % (42-75); PLATELET COUNT 263 X10'3 (140-440); RED BLOOD COUNT 4.89 X10'6 (4.70-6.10); RED CELL DISTRIBUTION WIDTH 15.3 % (11.5-14.5); WHITE BLOOD COUNT 9.8 X10'3 (4.5-11.0)
[2024-12-24 12:15] LABS: ALANINE AMINOTRANSFERASE 59 U/L (12-78); ALBUMIN 2.3 G/DL (3.4-5.0); ALBUMIN/GLOBULIN RATIO 0.6 (1.1-1.5); ALKALINE PHOSPHATASE 148 IU/L (46-116); ANION GAP 4 (8-16); BILIRUBIN,TOTAL 1.3 MG/DL (0.1-1.0); BLOOD UREA NITROGEN 19 MG/DL (7-18); BUN/CREATININE RATIO 26.8 (10.0-20.0); CHLORIDE 107 MMOL/L (99-107); CREATININE 0.71 MG/DL (0.60-1.10); GLUCOSE 156 MG/DL (70-104); SODIUM 138 MMOL/L (135-145); TOTAL CARBON DIOXIDE 27.2 MMOL/L (24-32); TOTAL PROTEIN 6.2 G/DL (6.4-8.2); eCRCL 119 ML/MIN; eGFR > 90 ML/MIN
[2024-12-24 12:34] LABS: ASPARTATE AMINO TRANSFERASE 48 U/L (10-37); POTASSIUM 4.8 MMOL/L (3.5-5.1)
[2024-12-25] VITALS (8 sets, daily range): BP systolic 116–134; BP diastolic 38–72; PULSE 81–94; RESP 18–22; TEMP 97.9–99.4; O2SAT 94–100
[2024-12-25] MEDS ORDERED: clopidogrel 75mg tablet NG SCH (15:43)
[2024-12-25] MEDS ORDERED: acetaminophen 325mg/10.15ml oral unit dose solution NG PRN (15:44)
[2024-12-25] MEDS ORDERED: magnesium hydroxide 30ml (MOM) UD suspension NG PRN (15:45)
[2024-12-25] MEDS ORDERED: mag hydrox/Alum hydrox/simeth 30ml oral suspension NG PRN (15:45)
[2024-12-25] MEDS ORDERED: Neutra Phos packet NG PRN (15:46)
[2024-12-25] MEDS ORDERED: polyethylene glycol 3350 17gm powd pack NG PRN (15:46)
[2024-12-25] MEDS: CefTRIAXone/D5W-Rocephin 1gm 50 ML IV SCH (20:50)
[2024-12-25] MEDS: lactose-reduced food (Ensure Enlive) - 237ml bottle NG SCH (20:58)
[2024-12-26] MEDS: metroNIDAZOLE-Flagyl 500mg/NS 100 ML IV SCH (00:49)
[2024-12-26 06:00] VITALS: BP 122/61; PULSE 95; RESP 18; TEMP 98.3; O2SAT 96
[2024-12-26] MEDS: clopidogrel 75mg tablet NG SCH (09:04)
[2024-12-26 10:00] VITALS: BP 109/61; PULSE 89; RESP 16; TEMP 98.4; O2SAT 97
[2024-12-26] MEDS ORDERED: acetaminophen 325mg/10.15ml oral unit dose solution PO PRN (11:18)
[2024-12-26] MEDS ORDERED: acetaminophen 325mg tablet PO PRN (11:20)
[2024-12-26] MEDS ORDERED: mag hydrox/Alum hydrox/simeth 30ml oral suspension PO PRN (11:21)
[2024-12-26] MEDS ORDERED: magnesium hydroxide 30ml (MOM) UD suspension PO PRN (11:21)
[2024-12-26] MEDS ORDERED: Neutra Phos packet PO PRN (11:22)
[2024-12-26] MEDS: HYDROcodone/acetaminophen 5mg/325mg tablet PO PRN (12:08)
[2024-12-26] MEDS: lactose-reduced food (Ensure Enlive) - 237ml bottle PO SCH (17:30)
[2024-12-26 18:00] VITALS: BP 135/79; PULSE 89; RESP 15; TEMP 97.9; O2SAT 99
[2024-12-26 20:00] VITALS: RESP 17
[2024-12-26] MEDS: methylPREDNISolone sod succ 125mg/2ml vial IV SCH (20:13)
[2024-12-26 20:22] VITALS: PULSE 96; RESP 18; O2SAT 96
[2024-12-26 22:00] VITALS: BP 115/53; PULSE 97; RESP 15; TEMP 98.1; O2SAT 95
[2024-12-27] VITALS (7 sets, daily range): BP systolic 111–146; BP diastolic 64–77; PULSE 70–97; RESP 16–18; TEMP 97.7–98.5; O2SAT 94–97
[2024-12-27] MEDS: clopidogrel 75mg tablet PO SCH (08:53)
[2024-12-28] VITALS (10 sets, daily range): BP systolic 106–129; BP diastolic 62–72; PULSE 73–88; RESP 16–22; TEMP 97–98.2; O2SAT 93–96
[2024-12-28] MEDS: metroNIDAZOLE 500mg tablet PO SCH (16:36)
[2024-12-29] VITALS (18 sets, daily range): BP systolic 106–136; BP diastolic 66–87; PULSE 65–94; RESP 16–28; TEMP 96.8–98.1; O2SAT 92–99
[2024-12-29 08:41] LABS: PRE OP INR 1.2 INR; PRE OP PROTIME 12.3 SECONDS (9.0-12.0)
[2024-12-29] MEDS ORDERED: sevoflurane 250ml liquid IH ONE (14:18)
[2024-12-29] MEDS ORDERED: fentaNYL/PF 50MCG/1 ML 2ML syringe ONE (15:04)
[2024-12-29] MEDS ORDERED: ondansetron/PF 4mg/2ml inj IV PRN (15:15)
[2024-12-29] MEDS ORDERED: morphine 2 MG/ML inj. syringe IV PRN (15:15)
[2024-12-29] MEDS ORDERED: labetalol 20mg/4ml (5mg/ml) syringe IV PRN (15:15)
[2024-12-29] MEDS ORDERED: morphine 4 MG/ML inj SYRINge IV PRN (15:15)
[2024-12-29] MEDS ORDERED: meperidine/PF 25mg/ml syringe IV PRN (15:15)
[2024-12-29] MEDS ORDERED: HYDROmorphone/PF 0.2 MG/ML SYRINGE IV PRN ×2 (15:15)
[2024-12-29] MEDS: ringers solution, lacted 1,000 ML IV SCH (15:15)
[2024-12-29] MEDS ORDERED: rocuronium 10mg/ml inj IV ONE (15:37)
[2024-12-29] MEDS ORDERED: propofol inj 20 ML IV ONE (15:37)
[2024-12-29] MEDS ORDERED: glycopyrrolate 0.2mg/ml inj ONE (15:37)
[2024-12-29] MEDS ORDERED: neostigmine methylsulfate 1 MG/ML 10ml vial ONE (15:37)
[2024-12-29] MEDS: morphine 2 MG/ML inj. syringe IV PRN (16:23)
[2024-12-30] VITALS (10 sets, daily range): BP systolic 106–139; BP diastolic 57–83; PULSE 65–92; RESP 17–20; TEMP 96.9–97.6; O2SAT 92–95
[2024-12-30 12:47] LABS: BASOPHILS % (AUTO) 0.2 % (0-1); EOSINOPHILS % (AUTO) 0 % (0-6); HEMOGLOBIN 11.9 g/dl (14.0-17.9); LYMPHOCYTES # (AUTO) 1.4 X10'3 (1.1-4.8); LYMPHOCYTES % (AUTO) 14.1 % (21-51); MEAN CORPUSCULAR HEMOGLOBIN 27.2 PG (27.0-31.0); MEAN CORPUSCULAR HGB CONC 33.1 g/dL (33.0-36.5); MEAN CORPUSCULAR VOLUME 82.2 FL (78-98); MEAN PLATELET VOLUME 8.3 FL (7.4-10.4); MONOCYTES # (AUTO) 0.6 X10'3 (0-0.9); MONOCYTES % (AUTO) 6.3 % (2-12); NEUTROPHILS % (AUTO) 79.4 % (42-75); PLATELET COUNT 361 X10'3 (140-440); RED BLOOD COUNT 4.39 X10'6 (4.70-6.10); RED CELL DISTRIBUTION WIDTH 14.7 % (11.5-14.5); WHITE BLOOD COUNT 10.1 X10'3 (4.5-11.0)
[2024-12-30 12:55] LABS: ALANINE AMINOTRANSFERASE 97 U/L (12-78); ALBUMIN 2.1 G/DL (3.4-5.0); ALBUMIN/GLOBULIN RATIO 0.6 (1.1-1.5); ALKALINE PHOSPHATASE 110 IU/L (46-116); ANION GAP 7 (8-16); ASPARTATE AMINO TRANSFERASE 97 U/L (10-37); BILIRUBIN,TOTAL 0.7 MG/DL (0.1-1.0); CALCIUM 9.9 MG/DL (8.5-10.1); CHLORIDE 101 MMOL/L (99-107); CREATININE 0.89 MG/DL (0.60-1.10); GLUCOSE 260 MG/DL (70-104); POTASSIUM 4.7 MMOL/L (3.5-5.1); PREALBUMIN 19.8 MG/DL (19-36); SODIUM 133 MMOL/L (135-145); TOTAL CARBON DIOXIDE 25.1 MMOL/L (24-32); TOTAL PROTEIN 5.5 G/DL (6.4-8.2); TRIGLYCERIDES 163 MG/DL (20-135); eCRCL 95 ML/MIN; eGFR 85 ML/MIN
[2024-12-30 12:57] LABS: BLOOD UREA NITROGEN 36 MG/DL (7-18); BUN/CREATININE RATIO 40.4 (10.0-20.0)
[2024-12-30] MEDS: Dakins solution (1/4 strength) 473ml solution TP SCH (14:37)
[2024-12-30] MEDS: clindamycin 600mg/D5W 50ml 50 ML IV SCH (16:37)
[2024-12-31] VITALS (8 sets, daily range): BP systolic 103–108; BP diastolic 63–68; PULSE 73–101; RESP 13–19; TEMP 97–98.1; O2SAT 94–97
[2025-01-01 09:04] VITALS: PULSE 102; RESP 28; O2SAT 95
[2025-01-01 09:37] VITALS: RESP 16; O2SAT 99
[2025-01-01 09:59] VITALS: RESP 16
[2025-01-01 10:26] VITALS: BP 110/62; PULSE 80; RESP 20; TEMP 97.4; O2SAT 94
[2025-01-01] MEDS: polyethylene glycol 3350 17gm powd pack PO PRN (16:19)
[2025-01-01] MEDS: bisacodyl 10mg suppository rectal RC PRN (16:19)
[2025-01-01 18:00] VITALS: BP 120/76; PULSE 101; RESP 20; TEMP 99.1; O2SAT 97
[2025-01-01] MEDS: magnesium hydroxide 30ml (MOM) UD suspension PO SCH (19:43)
[2025-01-01] MEDS: linezolid 600mg tablet PO SCH (19:43)
[2025-01-01 22:00] VITALS: BP 126/54; PULSE 87; RESP 22; TEMP 98.6; O2SAT 95
[2025-01-02 02:32] VITALS: O2SAT 95
[2025-01-02 06:00] VITALS: BP 101/56; PULSE 80; RESP 21; TEMP 98; O2SAT 97
[2025-01-02 08:04] VITALS: PULSE 62; RESP 24; O2SAT 95
[2025-01-02 08:13] VITALS: PULSE 72; RESP 20
== END 2025-01-02 12:18 | DRG 853 ==
LOC: ER 11:32 → UNDOADMIN 16:53 → PCU 3S 16:53 → SUR 3N 12-15 16:59 → ORTHO 4S 12-15 19:00 → SUR 3N 12-28 01:20
PROVIDERS: ADMIT Internal Medicine; ATTEND Internal Medicine
PROC: 4A00X4Z Measurement of Central Nervous Electrical Activity, External Approach (ICD-10-PCS; principal; 2024-12-12)
PROC: 0DB68ZX Excision of Stomach, Via Natural or Artificial Opening Endoscopic, Diagnostic (ICD-10-PCS; 2024-12-18)
PROC: 3E0G8GC Introduction of Other Therapeutic Substance into Upper GI, Via Natural or Artificial Opening Endoscopic (ICD-10-PCS; 2024-12-18)
PROC: 0KBN0ZZ Excision of Right Hip Muscle, Open Approach (ICD-10-PCS; 2024-12-29)
PROC: 0KBP0ZZ Excision of Left Hip Muscle, Open Approach (ICD-10-PCS; 2024-12-29)
PROC: BW251ZZ Computerized Tomography (CT Scan) of Chest, Abdomen and Pelvis using Low Osmolar Contrast (ICD-10-PCS; 2025-01-01)
DX: A41.9 Sepsis, unspecified organism (principal); G92.8 Other toxic encephalopathy; I63.9 Cerebral infarction, unspecified; J69.0 Pneumonitis due to inhalation of food and vomit; J96.01 Acute respiratory failure with hypoxia; N17.0 Acute kidney failure with tubular necrosis; J18.9 Pneumonia, unspecified organism; M62.82 Rhabdomyolysis; E87.0 Hyperosmolality and hypernatremia; E46 Unspecified protein-calorie malnutrition; E87.20 Acidosis, unspecified; Z20.822 Contact with and (suspected) exposure to COVID-19; I10 Essential (primary) hypertension; L89.159 Pressure ulcer of sacral region, unspecified stage; E87.5 Hyperkalemia; E83.52 Hypercalcemia; J44.9 Chronic obstructive pulmonary disease, unspecified; K26.9 Duodenal ulcer, unspecified as acute or chronic, without hemorrhage or perforation; K21.00 Gastro-esophageal reflux disease with esophagitis, without bleeding; R53.81 Other malaise; R74.01 Elevation of levels of liver transaminase levels; E88.09 Other disorders of plasma-protein metabolism, not elsewhere classified; Z99.3 Dependence on wheelchair; Z88.8 Allergy status to other drugs, medicaments and biological substances; Z68.31 Body mass index [BMI] 31.0-31.9, adult
CPT/HCPCS: 36415; 43255; 70450; 70551; 71045; 71260; 73080; 73502; 74018; 74177; 76700; 80053; 80061; 80305; 81001; 82550; 82570; 82948; 83036; 83605; 83735; 83880; 83935; 83970; 84100; 84133; 84134; 84145; 84300; 84478; 84484; 84550; 85007; 85025; 85610; 87040; 87070; 87075; 87077; 87081; 87186; 87502; 87503; 87811; 88305; 92508; 92616; 93005; 93306; 93971; 94640; 94760; 95816; 97110; 97161; 97162; 97530; 99291; A4615; A4618; A4624; A5200; A6154; A6209; A6213; A6222; A6223; A6250; A6253; A6446; A6449; A6590; A7000; C1758; G0378; J0171; J0696; J1644; J1940; J1953; J2060; J2270; J2470; J2543; J2704; J2710; J2919; J3010; J3490; J7030; J7040; J7042; J7060; J7070; J7120; J7121; Q9967